=== PATIENT | female | born 1950 | race Caucasian/White ===

== ENCOUNTER → 2023-06-21 10:42 | Outpatient (CLI) | payer MEDICARE, BC, SELFPAY ==
--- NOTE | 2023-06-21 10:47 | DI.MRI.S_ITS ---
PROCEDURE: MR KNEE LT WO CON INDICATIONS: PAIN IN LEFT KNEE TECHNIQUE: Noncontrast sagittal PD fast spin echo and T2 fast spin echo with fat saturation, sagittal 3-D FLASH with fat saturation; coronal T1 spin echo and PD fast spin echo with fat saturation, and axial PD fast spin echo with fat saturation through the knee. COMPARISON: None. FINDINGS: Image quality: Excellent. Menisci: There is medial meniscal extrusion and complex tear involving the body of the medial meniscus. A meniscal fragment is suspected within the inferior gutter. A horizontal tear is noted in the posterior horn of the medial meniscus. There is a 3 mm parameniscal cyst adjacent to the posterior horn. There is a large horizontal tear involving the anterior horn, body and posterior horn of the lateral meniscus. A small parameniscal cyst is seen adjacent to the body of the lateral meniscus. The meniscal root ligaments appear intact. Cruciate ligaments: The anterior and posterior cruciate ligaments appear intact. Medial structures: The medial collateral ligament appears intact. The semimembranosus tendon insertions and meniscocapsular junction appear intact. Visualized portions of the pes anserinus tendons appear normal. No abnormal bursal fluid. Lateral structures: The lateral collateral ligament, long and short heads of the biceps femoris tendon appear intact. The popliteus tendon appears normal. Iliotibial band appears normal. Anterior structures: The quadriceps and patellar tendons appear intact. Patellar alignment is normal. No femoral trochlear dysplasia or ventral trochlear prominence. No edema in the infrapatellar fat pad. Bones and cartilage: No bone marrow contusions or fractures. 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 Joint space: There is small knee joint fluid. There is a moderate-sized Albright's cyst. Normal appearing synovial plicae are incidentally noted. IMPRESSION: 1. Medial meniscal tear as described. 2. Lateral meniscal tear as described. 3. Chondromalacia patella. 4. 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 5. Small knee joint effusion. 6. A moderate-sized Albright's cyst. Dictated by: Samuel Cardozo M.D. on 06/21/2023 at 14:09 Approved by: Samuel Cardozo M.D. on 06/21/2023 at 18:43
== END ==
LOC: MRI 10:46
PROVIDERS: PCP Student in an Organized Health Care Education/Training Program; Referring Provider Nurse Practitioner Family; Visit Provider Nurse Practitioner Family
DX: S83.232A Complex tear of medial meniscus, current injury, left knee, initial encounter (principal); S83.282A Other tear of lateral meniscus, current injury, left knee, initial encounter; M22.42 Chondromalacia patellae, left knee; M25.462 Effusion, left knee; M71.22 Synovial cyst of popliteal space [Baker], left knee; M25.562 Pain in left knee
CPT/HCPCS: 73721

== ENCOUNTER → 2025-04-20 11:27 | Outpatient (CLI) | payer MEDICARE, BC, SELFPAY | LOC: NUCM 11:29 | PROVIDERS: PCP Student in an Organized Health Care Education/Training Program; Referring Provider Student in an Organized Health Care Education/Training Program; Visit Provider Student in an Organized Health Care Education/Training Program | DX: R06.09 Other forms of dyspnea (principal) | CPT/HCPCS: 78452; 93017; A9502; J2785 ==

== ENCOUNTER → 2025-04-27 13:27 | Outpatient (CLI) | payer MEDICARE, BC, SELFPAY ==
--- NOTE | 2025-04-27 17:09 | DI.NM.S_ITS ---
DATE OF SERVICE: 04/27/2025 PROCEDURE: Pharmacological perfusion study. INDICATIONS: Shortness of breath, hypertension, morbid obesity. RADIOPHARMACEUTICAL: 27.5 millicurie technetium-99m Myoview IV was injected at stress and 26.4 millicurie technetium-99m Myoview IV was injected at rest. CARDIAC STRESS: The patient underwent IV Lexiscan perfusion study under the supervision of an attending staff as per standard protocol. The patient remained hemodynamically stable. Baseline rhythm sinus. Resting blood pressure 136/80. During stress, no convincing ischemic changes seen. No significant arrhythmias. No chest pain. Had minimal dyspnea during Lexiscan infusion. RAW DATA: Significant breast shadow seen. The patient's weight is 230 pounds. Resting LV ejection fraction 84% and stress LV ejection fraction 91% without any obvious wall motion abnormalities. Resting end- diastolic volume 73 mL. TID ratio 1.13, which is within normal limits. Lung/heart ratio 0.46, which is abnormal. MYOCARDIAL PERFUSION SCAN: Stress supine, resting supine and stress prone images were compared to each other. There is no significant perfusion defect other than some apical thinning. CONCLUSION: I will call this study likely a normal myocardial perfusion study with some apical thinning. Resting LV ejection fraction 84% and stress LV ejection fraction 91%. The patient's weight is 230 pounds. Large breast shadow seen. During Lexiscan, no chest pain. Minimal dyspnea. Baseline rhythm sinus with some nonspecific ST-T changes. No convincing ischemic EKG changes or significant arrhythmias. Overall, low-risk myocardial perfusion scan. However, lung/heart ratio was mildly abnormal. Consider 2D echo to rule out valvular pathology or diastolic dysfunction. Marcial Miles - JENNIFER/radhika/BRENDEN doc#: [id number]/job#: [id number] dd: 04/27/2025 16:43:00 dt: 04/27/2025 17:01:00 DICTATING MD/COPIES TO: Lauren Rahman MD COPIES MNE: LIAT;
== END ==
PROVIDERS: PCP Student in an Organized Health Care Education/Training Program; Referring Provider Student in an Organized Health Care Education/Training Program; Visit Provider Student in an Organized Health Care Education/Training Program
DX: R06.09 Other forms of dyspnea (principal)